=== PATIENT | male | born 1980 | race Caucasian/White ===

== ENCOUNTER 2017-08-22 23:05 | Inpatient (IN) | payer MEDICAID ==
[2017-08-22] MEDS ORDERED: Sodium Chloride 0.9% 1,000 ML IV ONE (23:19)
[2017-08-22] MEDS ORDERED: cefTRIAXone 1 GM in Sodium Chloride 0.9% 50 ML IV ONE (23:20)
--- NOTE | 2017-08-22 23:27 | ED Physician Chart ---
ED Chief Complaint/HPI - Patient Information Date Seen:: 08/22/17 Time Seen:: 23:00 Chief Complaint:: Urinary Retention History of Present Illness:: onset x one day of urinary retention; pt had I and D for Herlinda-Rectal Abscess earlier today; no trauma, H/As, neck pain, C/P, SOB, Abd. Pain, A/N/V/D/C, fever , chills, or flank pain Allergies:: Allergies Allergy/AdvReac Type Severity Reaction Status Date / Time No Known Allergies Allergy Verified 08/22/17 23:18 Vitals:: Vital Signs - 8 hr 08/22/17 23:05 Temp 98.9 F HR 75 RR 18 BP 131/74 O2 Sat % 95 Historian:: Patient, Family Member Review:: Nurse's Note Reviewed ED Review of Systems - Review of Systems General/Constitutional: No fever, No chills, No weight loss, No weakness, No diaphoresis, No edema, No loss of appetite Skin: No skin lesions, No rash, No bruising Head: No headache, No light-headedness Eyes: No loss of vision, No pain, No diplopia ENT: No earache, No nasal drainage, No sore throat, No tinnitus Neck: No neck pain, No swelling, No thyromegaly, No stiffness, No mass noted Cardio Vascular: No chest pain, No palpitations, No PND, No orthopnea, No edema Pulmonary: No SOB, No cough, No sputum, No wheezing GI: No nausea, No vomiting, No diarrhea, No pain, No melena, No hematochezia, No constipation, No hematemesis G/U: No dysuria, No frequency, No hematuria, No nacturia Musculoskeletal: No bone or joint pain, No back pain, No muscle pain Endocrine: No polyuria, No polydipsia Psychiatric: No prior psych history, No depression, No anxiety, No suicidal ideation Hematopoietic: No bruising, No lymphadenopathy Allergic/Immuno: No urticaria, No angioedema Neurological: No syncope, No focal symptoms, No weakness, No paresthesia, No headache, No seizure, No dizziness, No confusion, No vertigo ED Past Medical History - Past Medical History Obtainable: Yes Past Medical History: Other (Per-Rectal abscess) Family History: HTN Social History: Non Smoker, No Alcohol, No Drug Use, Single Surgical History: other (I and D of Per-Rectal Abscess) Psychiatricy History: None Medication: Reviewed Family Medical History - Family Member Mother Ethnicity: ED Physical Exam - Physical Examination General/Constitutional: Awake, Well-developed, well-nourished, Alert, No distress, GCS 15, Non-toxic appearing, Ambulatory Head: Atraumatic Eyes: Lids, conjuctiva normal, PERRL, EOMI Skin: Nl inspection, No rash, No skin lesions, No ecchymosis, Well hydrated, No lymphadenopathy ENMT: External ears, nose nl, TM canals nl, Nasal exam nl, Lips, teeth, gums nl , Oropharynx nl Neck: Nontender, Full ROM w/o pain, No JVD, No nuchal rigidity, No bruit, No mass, No stridor Respiratory: Nl effort/Exclusion, Clear to Auscultation, No Wheeze/Rhonchi/Rales Cardio Vascular: RRR, No murmur, gallop, rubs, NL S1 S2, Carotid/Femoral/Distal pulses equal bilaterally GI: No tenderness/rebounding/guarding, No organomegaly, No hernia, Normal BS's, Nondistended, No mass/bruits, No McBurney tenderness Other GI comments:: + Herlinda-Rectal Abscess; S/P I and D with Packing : No CVA tenderness Other comments:: + Urinary Retention Extremities: No tenderness or effusion, Full ROM, normal strength in all extremities, No edema, Normal digits & nails Neuro/Psych: Alert/oriented, DTR's symmetric, Normal sensory exam, Normal motor strength, Judgement/insight normal, Mood normal, Normal gait, No focal deficits Misc: Normal back, No paraspinal tenderness ED Labs/Radiology/EKG Results - Lab Results Comments:: K+: 3.3; Na+: 131; WBC: 15.2 - EKG Interpretations Rate & Rhythm: NSR Comments:: non-specific sr-r changes ED Septic Shock - . Is Septic Shock (SBP<90, OR Lactate>4 mmol\L) present?: No - <6hrs of presentation: Vital Signs: Vital Signs - 8 hr 08/22/17 23:05 Temp 98.9 F HR 75 RR 18 BP 131/74 O2 Sat % 95 ED Reassessment (Disposition) - Reassessment Reassessment Condition:: Improved - Diagnosis Diagnosis:: Dx: URl Abscess; Urinary Retention; Cellulitis; Sepsis; Leukocytosis; Hypokalemia; Hyponatremoa - Aftercare/Follow up Instructions Aftercare/Follow-Up Instructions:: Counseled pt regarding lab results/diagnosis & need follow up, Counseled pt & family regarding lab results/diagnosis & need follow up - Patient Disposition Discharge/Transfer:: Acute Care w/in this hosp Accepting Physician:: Dr. Meadows Time Called:: [id number] Time Responded:: 23:55 Admitted to:: Med/Surg Spoke to:: Dr. Meadows Admitting Medical Physician:: Dr. Meadows Condition at Disposition:: Stable, Improved
[2017-08-22 23:45] LABS: RED CELL DISTRIBUTION WIDTH 11.9 % (11.5-20.0)
[2017-08-22 23:54] LABS: URINE BILIRUBIN NEGATIVE (NEGATIVE); URINE BLOOD NEGATIVE (NEGATIVE); URINE GLUCOSE (UA) NEGATIVE (NEGATIVE); URINE KETONE 15 mg/dL (NEGATIVE); URINE PH 6.5 (4.6 - 8.0); URINE PROTEIN NEGATIVE (NEGATIVE); URINE UROBILINOGEN 0.2 E.U./dL (0.2 - 1.0)
[2017-08-22] MEDS ORDERED: Morphine Sulfate 2 mg/mL 1mL Syr ONE (23:54)
[2017-08-22 23:55] LABS: URINE BACTERIA NONE SEEN /hpf (NONE SEEN); URINE COLOR YELLOW; URINE EPITHELIAL CELLS NONE SEEN /lpf (FEW); URINE RBC NONE SEEN /hpf (0-5); URINE WBC NONE SEEN /hpf (0-5)
[2017-08-22 23:58] LABS: HEMATOCRIT 42.6 % (41.0-60); HEMOGLOBIN 14.4 gm/dL (12-16); MEAN CELL VOLUME 89.5 fl (80-99); MEAN CORPUSCULAR HEMOGLOBIN 30.2 pg (26.0-30.0); MEAN CORPUSCULAR HGB CONC 33.7 pg (28.0-36.0); MEAN PLATELET VOLUME 9.3 fl; PLATELET COUNT 245 Th/cmm (150-400); RED BLOOD COUNT 4.76 Mil/cmm (4.30-5.70)
[2017-08-23 00:02] LABS: WHITE BLOOD COUNT 15.2 Th/cmm (4.8-10.8)
[2017-08-23 00:04] LABS: ALB/GLOB RATIO 1.3 (1.0-1.8); ALKALINE PHOSPHATASE 58 U/L (34-104); ANION GAP 6.9 (7.0-16.0); BILIRUBIN,TOTAL 1.3 mg/dL (0.3-1.0); BUN - UREA NITROGEN 15 mg/dL (7-25); BUN/CREATININE RATIO 18.8; CALCIUM SERUM 9.1 mg/dL (8.6-10.3); CARBON DIOXIDE 27.4 mEq/L (21.0-31.0); CHLORIDE 100 mEq/L (98-107); CREATININE - SERUM 0.8 mg/dL (0.7-1.3); GLUCOSE 152 mg/dL (70-105); POTASSIUM SERUM 3.3 mEq/L (3.5-5.1); SGOT 34 U/L (13-39); SGPT/ALT 57 U/L (7-52); SODIUM SERUM 131 mEq/L (136-145)
[2017-08-23 00:09] LABS: TROP I < 0.01 ng/mL (0.01-0.05)
[2017-08-23 00:22] LABS: INR 1.06 (0.5-1.4)
[2017-08-23] MEDS ORDERED: Potassium Chloride 20 mEq ER Tab PO ONE ×2 (00:37→01:04)
[2017-08-23] MEDS ORDERED: Morphine Sulfate 2 mg/mL 1mL Syr ONE ×2 (01:38→06:08)
[2017-08-23] MEDS: Morphine Sulfate 2 mg/mL 1mL Syr IVP PRN ×2 (01:40→06:12)
[2017-08-23 02:13] LABS: BAND NEUTROPHILE 8 % (0-10); BASOPHIL 0 % (0-3); EOSINOPHIL 0 % (0-5); NEUTROPHILS 79 % (40-80); PLATELET ESTIMATE ADEQUATE (NORMAL); PLATELET MORPHOLOGY NORMAL (NORMAL); TOTAL CELLS COUNTED 100
[2017-08-23] MEDS ORDERED: Vancomycin HCl 1.5 GM in Sodium Chloride 0.9% 500 ML IV ONE (10:00)
[2017-08-23] MEDS ORDERED: Probiotic Screen MC PRN (10:07)
--- NOTE | 2017-08-23 13:17 | General Progress Note ---
Subjective - Review of Systems Service Date: 08/23/17 Events since last encounter: developed urinary retention post I and D rectal abscess history of rectal fistula, treated at [facility] suggest patient go back to [place] for follow up treatment Objective - Results Result Diagrams: 08/22/17 23:29 08/22/17 23: Recent Labs: Laboratory Last Values WBC 15.2 Th/cmm (4.8-10.8) H 08/22/17 23: RBC 4.76 Mil/cmm (4.30-5.70) 08/22/17 23: Hgb 14.4 gm/dL (12-16) 08/22/17: Hct 42.6 % (41.0-60) 08/22/17: MCV 89.5 fl (80-99) 08/22/17 23: MCH 30.2 pg (26.0-30.0) H 08/22/17: MCHC Differential 33.7 pg (28.0-36.0) 08/22/17: RDW 11.9 % (11.5-20.0) 08/22/17: Plt Count 245 Th/cmm (150-400) 08/22/17: MPV 9.3 fl 08/22/17: Band Neutrophils % 8 % (0-10) 08/22/17: Neutrophils (Manual) 79 % (40-80) 08/22/17: Lymphocytes 11 % (20-50) L 08/22/17: Monocytes 2 % (2-10) 08/22/17: Eosinophils 0 % (0-5) 08/22/17 23: Basophils 0 % (0-3) 08/22/17: Platelet Estimate ADEQUATE (NORMAL) 08/22/17: Platelet Morphology NORMAL (NORMAL) 08/22/17: RBC Morph Micro Appear NORMAL (NORMAL) 08/22/17 23: PT 11.0 SECONDS (9.5-11.5) 08/22/17 23: INR 1.06 (0.5-1.4) 08/22/17 23: PTT (Actin FS) 24.1 SECONDS (26.0-38.0) L 11/15/17 23:29 Sodium 131 mEq/L (136-145) L 08/22/17 23:29 Potassium 3.3 mEq/L (3.5-5.1) L 08/22/17 23:29 Chloride 100 mEq/L (98-107) 08/22/17 23:29 Carbon Dioxide 27.4 mEq/L (21.0-31.0) 08/22/17 23:29 Anion Gap 6.9 (7.0-16.0) L 08/22/17 23:29 BUN 15 mg/dL (7-25) 08/22/17 23:29 Creatinine 0.8 mg/dL (0.7-1.3) 08/22/17 23:29 Est GFR ( Amer) > 60.0 ml/min (>90) 08/22/17 23:29 Est GFR (Non-Af Amer) > 60.0 ml/min 08/22/17 23: BUN/Creatinine Ratio 18.8 08/22/17 23: Glucose 152 mg/dL (70-105) H 08/22/17 23:29 Whole Bld Lactic Acid 1.37 mmol/L (0.60-1.99) 08/22/17 23: Calcium 9.1 mg/dL (8.6-10.3) 08/22/17 23:29 Total Bilirubin 1.3 mg/dL (0.3-1.0) H 08/22/17 23:29 AST 34 U/L (13-39) 08/22/17 23:29 ALT 57 U/L (7-52) H 08/22/17 23:29 Alkaline Phosphatase 58 U/L (34-104) 08/22/17 23:29 Creatine Kinase 136 U/L (30-223) 08/22/17 23:29 Troponin I < 0.01 ng/mL (0.01-0.05) L 08/22/17 23:29 Total Protein 7.1 gm/dL (6.0-8.3) 08/22/17 23:29 Albumin 4.0 gm/dL (4.2-5.5) L 08/22/17 23:29 Globulin 3.1 gm/dL 08/22/17 23:29 Albumin/Globulin Ratio 1.3 (1.0-1.8) 08/22/17 23:29 Urine Source [place] 08/22/17 23:35 Urine Color YELLOW 08/22/17 23:35 Urine Clarity CLEAR (CLEAR) 08/22/17 23:35 Urine pH 6.5 (4.6 - 8.0) 08/22/17 23:35 Ur Specific [place] 1.020 (1.005-1.030) 08/22/17 23:35 Urine Protein NEGATIVE mg/dL (NEGATIVE) 08/22/17 23:35 Urine Glucose (UA) NEGATIVE mg/dL (NEGATIVE) 08/22/17 23:35 Urine Ketones 15 mg/dL (NEGATIVE) H 08/22/17 23:35 Urine Blood NEGATIVE (NEGATIVE) 08/22/17 23:35 Urine Nitrate NEGATIVE (NEGATIVE) 08/22/17 23:35 Urine Bilirubin NEGATIVE (NEGATIVE) 08/22/17 23:35 Urine Urobilinogen 0.2 E.U./dL (0.2 - 1.0) 08/22/17 23:35 Ur Leukocyte Esterase NEGATIVE (NEGATIVE) 08/22/17 23:35 Urine RBC NONE SEEN /hpf (0-5) 08/22/17 23:35 Urine WBC NONE SEEN /hpf (0-5) 08/22/17 23:35 Ur Epithelial Cells NONE SEEN /lpf (FEW) 08/22/17 23:35 Urine Bacteria NONE SEEN /hpf (NONE SEEN) 08/22/17 23:35 - Physical Exam Vitals and I&O: Vital Signs Temp 98.7 F 08/23/17 08:00 Pulse 67 08/23/17 08:00 Resp 18 08/23/17 08:00 BP 120/66 08/23/17 08:00 Pulse Ox 96 08/23/17 08:00 Intake & Output 08/22/17 08/23/17 08/23/17 18:59 06:59 18:59 Intake Total 700 Balance 700 Intake: Intake, IV Amount 700 Piperacillin Sodium/ 100 Tazobact 4.5 gm In Sodium Chloride 0.9% 100 ml @ 100 mls/hr IV Q8HR [facility] Rx #:[id number] Vancomycin HCl 0.75 gm In 250 Sodium Chloride 0.9% 250 ml @ 165 mls/hr IV Q8H [facility] Rx#:[id number] Active Medications: Current Medications Piperacillin Sod/Tazobactam (Sod 4.5 gm/ Sodium Chloride) 100 mls @ 100 mls/hr IV Q8HR [facility] Stop: 10/22/17 04:59 Last Infusion: 08/23/17 06:11 Dose: Infused Vancomycin HCl 1 gm/ Sodium (Chloride) 250 mls @ 165 mls/hr IV Q8H [facility] Stop: 10/22/17 17:59 Lactobacillus Rhamnosus (Culturelle) 1 each PO DAILY [facility] Stop: 10/23/17 08:59 Miscellaneous (Vancomycin Iv Per Pharmacy) 1 ea PRN PRN PRN Reason: PROTOCOL Stop: 10/22/17 00:56 Miscellaneous (Probiotic Screen) 1 ea PRN PRN PRN Reason: PROTOCOL Stop: 10/22/17 10:06 Morphine Sulfate (Morphine) 2 mg IVP Q4H PRN PRN Reason: Pain (Moderate) Stop: 10/22/17 01:14 Last Admin: 08/23/17 06:12 Dose: 2 mg Ondansetron HCl (Zofran) 4 mg IV Q6H PRN PRN Reason: Nausea / Vomiting Stop: 10/22/17 00:59
[2017-08-23] MEDS ORDERED: Menthol/Zinc Oxide Oint 113gm Tube TP PRN (17:31)
[2017-08-23] MEDS: Menthol/Zinc Oxide Oint 113gm Tube TP SCH (21:30)
--- NOTE | 2017-08-24 01:29 | Consultation ---
Consult Note - Consult Note Service Date: 08/23/17 Referring Physician: Blane Meadows Consult Note: PHYSICIAN Consultation Note: Date of Admission: 08/23/17 Purpose of Consultation: rectal abscess. Chief Complaint: Patient L[facility] CURRIE was admitted to [facility] Medical[facility] Unit I with RECTAL ABSCESS. History of Present Illness: patient is 37 year male had developed pain ini rectal area, he had I and D performed at [facility]. he was admitted for urinary retention of one day. He was afebrile , his WBC Count was 15,000. Newsome was placed in, which was removed. he is able to urinate himself. Past Medical History: None Allergies Allergy/AdvReac Type Severity Reaction Status Date / Time No Known Allergies Allergy Verified 08/22/17 23:18 Vital Signs Temp 98.9 F 08/23/17 20:00 Pulse 67 08/23/17 20:00 Resp 18 08/23/17 20:00 BP 115/69 08/23/17 20:00 Pulse Ox 96 08/23/17 20:00 Intake & Output 08/23/17 08/23/17 08/24/17 06:59 18:59 06:59 Intake Total 700 100 100 Output Total 0 Balance 700 -1950 100 Weight (lbs) 81.647 kg Intake: Intake, IV Amount 700 100 100 Piperacillin Sodium/ 100 100 100 Tazobact 4.5 gm In Sodium Chloride 0.9% 100 ml @ 100 mls/hr IV Q8HR [facility] Rx #:[id number] Vancomycin HCl 0.75 gm In 250 Sodium Chloride 0.9% 250 ml @ 165 mls/hr IV Q8H [facility] Rx#:[id number] Output: Urine 2049 Other: # Voids 1 Home Medication Medication Instructions Recorded Type traMADol HCl [Ultram*] 50 mg PO Q6H PRN 08/22/17 History Current Medications Generic Name Dose Route Start Last Admin Trade Name Freq PRN Reason Stop Dose Admin Calamine/Phenol 1 appl 08/23/17 21:00 08/23/17 21:30 Calmoseptine TP 10/22/17 20:59 Not Given QID SHA Calamine/Phenol 1 appl 08/23/17 17:31 Calmoseptine TP 10/22/17 17:30 QID PRN Skin Irritation Piperacillin Sod/Tazobactam 100 mls @ 100 mls/hr 08/23/17 05:00 08/23/17 21: 05 Sod 4.5 gm/ Sodium Chloride IV 10/22/17 04:59 Infused Q8HR [facility] Infusion Vancomycin HCl 1 gm/ Sodium 250 mls @ 165 mls/hr 08/23/17 18:00 08/23/17 17: 15 Chloride IV 10/22/17 17:59 165 mls/hr Q8H [facility] Administration Lactobacillus Rhamnosus 1 each 08/24/17 09:00 Culturelle PO 10/23/17 08:59 DAILY [facility] Miscellaneous 1 ea 08/23/17 00:57 Vancomycin Iv Per Pharmacy 10/22/17 00:56 PRN PRN PROTOCOL Miscellaneous 1 ea 08/23/17 10:07 Probiotic Screen 10/22/17 10:06 PRN PRN PROTOCOL Morphine Sulfate 2 mg 08/23/17 01:01 08/23/17 06:12 Morphine IVP 10/22/17 01:14 2 mg Q4H PRN Administration Pain (Moderate) Ondansetron HCl 4 mg 08/23/17 01:00 Zofran IV 10/22/17 00:59 Q6H PRN Nausea / Vomiting Review of Systems: A 12 point ROS was reviewed with the pertinent positive and negatives noted in the HPI. 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 Family Medical History unknown Physical Exam: General: Comfortable. WN WD. HEENT: Head normocephalic atraumatic, Oral cavity moist, pink tongue. Eye no pallor no icterus. Neck: supple, no JVD, no use of acc enck muscles. Cardio: S1 And S2 WNL. no Murmur no gallop Respiratory: CTAP Abdominal: Soft NT ND BS present. Genital/Urinary: deferred Extremities: NCCE Neurological: AAOx 3. no focal neurodeficit. Assessment: 1. rectal abscess. 2. Urinary retension. Resolved. Plan: If leukocytosis improved, may dc patient on levaquin po and flagyl po for 10 days. May F/u with urology consult outpatient basis if needed. Meanwhile continue vanco IV and Zosyn. Signed, Abe Dickson M.D. [id number]
--- NOTE | 2017-08-24 02:42 | History & Physical ---
ADMIT DATE: 08/23/2017 CHIEF COMPLAINT: Unable to urinate. HISTORY OF PRESENT ILLNESS: This is a 37-year-old male who underwent an anal fistula surgery at ____ [facility] in [place]. Postoperatively, the patient was discharged home. The patient says that he was unable to void and having lower abdominal pain, so the patient came into the Emergency Room. The patient had a Newsome catheterization done, noted to have large volume of urine came out. The patient noticed to have white count of 15.2. So, the patient subsequently admitted for further treatment. The patient denies any fever. No chills, no dysuria, no hematuria, no nausea, no vomiting, no abdominal pain, no headache or any other complaints. PAST MEDICAL HISTORY: Anal fistula. PAST SURGICAL HISTORY: The patient underwent anal fistula surgery. ALLERGIES: NO KNOWN DRUG ALLERGY. REVIEW OF SYSTEMS: As per HPI, 12-point system appears negative. PHYSICAL EXAMINATION: VITAL SIGNS: Temperature 98.9, pulse 67, respirations 18, blood pressure 115/69, oxygen 96% on room air. GENERAL APPEARANCE: The patient does not seem in acute distress, lying comfortably. HEENT: Unremarkable. HEART: S1, S2 normal. LUNGS: Clear to auscultation bilaterally. ABDOMEN: Soft, nontender. No rebound or guarding. NEUROLOGIC: The patient is alert, awake, and follows commands. Cranial nerves II through XII are grossly intact. EXTREMITIES: Both lower extremity DTR +2. Sensation normal. AVAILABLE LABORATORY DATA: Has been reviewed. ASSESSMENT: 1. Acute urinary retention. 2. Anal fistula, status post surgery. 3. Leukocytosis. PLAN: The patient was admitted to [facility] floor. The patient was given Newsome catheterization. The patient had a good urine output. Will discontinue Newsome and see if the patient is able to void or not. Will continue IV antibiotics. The patient was evaluated by General Surgery, recommended to continue current treatment and follow with Surgery at [facility] Hospital. ID also consulted. Discussed with her conditions and plan of care. JOB# [id number]
[2017-08-24] MEDS: Morphine Sulfate 2 mg/mL 1mL Syr IVP PRN ×2 (05:10→20:25)
[2017-08-24 07:12] LABS: % BASOPHILS 3.7 % (0.0-2.0); % EOSINOPHILS 2.8 % (0.0-5.0); % LYMPHOCYTES 14.2 % (20.0-50.0); % MONOCYTES 10.8 % (2.0-10.0); % NEUTROPHILS 68.5 % (40.0-80.0); HEMATOCRIT 44.6 % (41.0-60); HEMOGLOBIN 14.6 gm/dL (12-16); MEAN CELL VOLUME 90.7 fl (80-99); MEAN CORPUSCULAR HEMOGLOBIN 29.6 pg (26.0-30.0); MEAN CORPUSCULAR HGB CONC 32.7 pg (28.0-36.0); MEAN PLATELET VOLUME 8.8 fl; NEUTROPHILE ABSOLUTE 5.8 Th/cmm (1.8-8.0); RED BLOOD COUNT 4.92 Mil/cmm (4.30-5.70); RED CELL DISTRIBUTION WIDTH 11.8 % (11.5-20.0)
[2017-08-24 07:21] LABS: PLATELET COUNT 192 Th/cmm (150-400); WHITE BLOOD COUNT 8.4 Th/cmm (4.8-10.8)
[2017-08-24 07:22] LABS: ANION GAP 8.3 (7.0-16.0); BUN - UREA NITROGEN 10 mg/dL (7-25); BUN/CREATININE RATIO 9.1; CALCIUM SERUM 9.2 mg/dL (8.6-10.3); CARBON DIOXIDE 26.2 mEq/L (21.0-31.0); CHLORIDE 104 mEq/L (98-107); CREATININE - SERUM 1.1 mg/dL (0.7-1.3); GLUCOSE 96 mg/dL (70-105); POTASSIUM SERUM 3.5 mEq/L (3.5-5.1); SODIUM SERUM 135 mEq/L (136-145)
[2017-08-24] MEDS: Menthol/Zinc Oxide Oint 113gm Tube TP SCH ×4 (08:56→20:11)
[2017-08-24] MEDS ORDERED: Lactobacillus Rhamnosus 10 Billion CFU Capsule PO SCH (09:00)
--- NOTE | 2017-08-24 14:22 | Consultation ---
DATE OF CONSULTATION: 08/23/2017 SURGICAL CONSULTATION REFERRING PHYSICIAN: Dr. Meadows. REASON FOR CONSULTATION: Anorectal fistula. HISTORY OF PRESENT ILLNESS: This is a 37-year-old male admitted because of inability to urinate. The patient had a Newsome catheter inserted. PAST MEDICAL HISTORY: Involves what the patient claims was an anorectal fistula treated at [facility] about a month ago. Exact treatment is not known. Additionally, he had an abscess that was drained. The other significant history is that he denies diabetes or hypertension. Apparently, this is the first episode of urinary retention. LABORATORY STUDIES: Showed WBC at 15,200 with 11% lymphocytes. PT and PTT are normal. Chemistry shows bilirubin of 1.3 with ALT of 57, raising the question of alcohol intake and early cirrhosis of the liver. PHYSICAL EXAMINATION: Now does not show any recent drainage of any perirectal abscess as there is no wound there. RECOMMENDATIONS: Suggest the patient go back to his surgeon of record, who did the fistula treatment at [facility]. JOB# [id number]
--- NOTE | 2017-08-24 14:47 | Diagnostic Imaging Report ---
Ultrasound urinary bladder HISTORY: Difficulty urination The exam demonstrates a normal contour of the urinary bladder. Normal wall thickness. No intraluminal abnormalities are seen. A 5 mm echogenic density is noted immediately adjacent to the anterior wall of the urinary bladder. This may represent a small calcification of questionable significance. If necessary, a CT scan provide additional assessment. Prevoid urine volume equals 251.7 mL. Post void volume equals 37.3 mL. IMPRESSION: 1. 5 mm echogenic density adjacent to the anterior wall of the urinary bladder that may are present a small calcification of questionable significance. If needed, a CT scan would provide additional assessment. 2. Post void residual equals 37.3 mL.
--- NOTE | 2017-08-24 22:06 | General Progress Note ---
Subjective - Review of Systems Service Date: 08/24/17 Subjective: Patient feels better able to void well after dc'ing shankar. Denied any other complaints. Irish speaking hospital staff was used for communication Objective - Results Result Diagrams: 08/24/17 06:50 08/24/17 06:50 Recent Labs: Laboratory Last Values WBC 8.4 Th/cmm (4.8-10.8) D 08/24/17 06:50 RBC 4.92 Mil/cmm (4.30-5.70) 08/24/17 06:50 Hgb 14.6 gm/dL (12-16) 08/24/17 06:50 Hct 44.6 % (41.0-60) 08/24/17 06:50 MCV 90.7 fl (80-99) 08/24/17 06:50 MCH 29.6 pg (26.0-30.0) 08/24/17 06:50 MCHC Differential 32.7 pg (28.0-36.0) 08/24/17 06:50 RDW 11.8 % (11.5-20.0) 08/24/17 06:50 Plt Count 192 Th/cmm (150-400) D 08/24/17 06:50 MPV 8.8 fl 08/24/17 06:50 Neutrophils % 68.5 % (40.0-80.0) 08/24/17 06:50 Band Neutrophils % 8 % (0-10) 08/22/17 23:29 Lymphocytes % 14.2 % (20.0-50.0) L 08/24/17 06:50 Monocytes % 10.8 % (2.0-10.0) H 08/24/17 06:50 Eosinophils % 2.8 % (0.0-5.0) 08/24/17 06:50 Basophils % 3.7 % (0.0-2.0) H 08/24/17 06:50 Neutrophils (Manual) 79 % (40-80) 08/22/17 23:29 Lymphocytes 11 % (20-50) L 08/22/17 23:29 Monocytes 2 % (2-10) 08/22/17 23:29 Eosinophils 0 % (0-5) 08/22/17 23:29 Basophils 0 % (0-3) 08/22/17 23:29 Platelet Estimate ADEQUATE (NORMAL) 08/22/17 23:29 Platelet Morphology NORMAL (NORMAL) 08/22/17 23: RBC Morph Micro Appear NORMAL (NORMAL) 08/22/17 23:29 PT 11.0 SECONDS (9.5-11.5) 08/22/17 23:29 INR 1.06 (0.5-1.4) 08/22/17 23: PTT (Actin FS) 24.1 SECONDS (26.0-38.0) L 08/22/17 23:29 Sodium 135 mEq/L (136-145) L 08/24/17 06:50 Potassium 3.5 mEq/L (3.5-5.1) 08/24/17 06:50 Chloride 104 mEq/L (98-107) 08/24/17 06:50 Carbon Dioxide 26.2 mEq/L (21.0-31.0) 08/24/17 06:50 Anion Gap 8.3 (7.0-16.0) 08/24/17 06:50 BUN 10 mg/dL (7-25) 08/24/17 06:50 Creatinine 1.1 mg/dL (0.7-1.3) 08/24/17 06:50 Est GFR ( Amer) > 60.0 ml/min (>90) 08/24/17 06:50 Est GFR (Non-Af Amer) > 60.0 ml/min 08/24/17 06:50 BUN/Creatinine Ratio 9.1 08/24/17 06:50 Glucose 96 mg/dL (70-105) 08/24/17 06:50 Whole Bld Lactic Acid 1.37 mmol/L (0.60-1.99) 08/22/17 23: Calcium 9.2 mg/dL (8.6-10.3) 08/24/17 06:50 Total Bilirubin 1.3 mg/dL (0.3-1.0) H 08/22/17 23:29 AST 34 U/L (13-39) 08/22/17 23:29 ALT 57 U/L (7-52) H 08/22/17 23:29 Alkaline Phosphatase 58 U/L (34-104) 08/22/17 23: Creatine Kinase 136 U/L (30-223) 08/22/17 23:29 Troponin I < 0.01 ng/mL (0.01-0.05) L 08/22/17 23:29 Total Protein 7.1 gm/dL (6.0-8.3) 08/22/17 23:29 Albumin 4.0 gm/dL (4.2-5.5) L 08/22/17 23:29 Globulin 3.1 gm/dL 08/22/17 23:29 Albumin/Globulin Ratio 1.3 (1.0-1.8) 08/22/17 23:29 Urine Source [place] 08/22/17 23:35 Urine Color YELLOW 08/22/17 23:35 Urine Clarity CLEAR (CLEAR) 08/22/17 23:35 Urine pH 6.5 (4.6 - 8.0) 08/22/17 23:35 Ur Specific [place] 1.020 (1.005-1.030) 08/22/17 23:35 Urine Protein NEGATIVE mg/dL (NEGATIVE) 08/22/17 23:35 Urine Glucose (UA) NEGATIVE mg/dL (NEGATIVE) 08/22/17 23:35 Urine Ketones 15 mg/dL (NEGATIVE) H 08/22/17 23:35 Urine Blood NEGATIVE (NEGATIVE) 08/22/17 23:35 Urine Nitrate NEGATIVE (NEGATIVE) 08/22/17 23:35 Urine Bilirubin NEGATIVE (NEGATIVE) 08/22/17 23:35 Urine Urobilinogen 0.2 E.U./dL (0.2 - 1.0) 08/22/17 23:35 Ur Leukocyte Esterase NEGATIVE (NEGATIVE) 08/22/17 23:35 Urine RBC NONE SEEN /hpf (0-5) 08/22/17 23:35 Urine WBC NONE SEEN /hpf (0-5) 08/22/17 23:35 Ur Epithelial Cells NONE SEEN /lpf (FEW) 08/22/17 23:35 Urine Bacteria NONE SEEN /hpf (NONE SEEN) 08/22/17 23:35 Vancomycin Trough 19.7 ug/mL (10-20) 08/24/17 09:02 - Physical Exam Vitals and I&O: Vital Signs Temp 97.8 F 08/24/17 16:00 Pulse 70 08/24/17 16:00 Resp 17 08/24/17 16:00 BP 139/80 08/24/17 16:00 Pulse Ox 96 08/24/17 16:00 Intake & Output 08/24/17 08/24/17 08/25/17 06:59 18:59 06:59 Intake Total 650 300 20 Balance 650 300 20 Weight (lbs) 79.923 kg 79.923 kg Intake: Intake, IV Amount 450 300 Piperacillin Sodium/ 200 Tazobact 4.5 gm In Sodium Chloride 0.9% 100 ml @ 100 mls/hr IV Q8HR [facility] Rx #:[id number] Piperacillin Sodium/ 50 Tazobact 4.5 gm In Sodium Chloride 0.9% 50 ml @ 50 mls/hr IV Q8HR [facility] Rx#: [id number] Vancomycin HCl 1 gm In 250 250 Sodium Chloride 0.9% 250 ml @ 165 mls/hr IV Q8H [facility] Rx#:[id number] Oral 200 20 Other: # Voids 2 1 # Bowel Movements 1 1 Active Medications: Current Medications Calamine/Phenol (Calmoseptine) 1 appl TP QID [facility] Stop: 10/22/17 20:59 Last Admin: 08/24/17 20:11 Dose: 1 appl Calamine/Phenol (Calmoseptine) 1 appl TP QID PRN PRN Reason: Skin Irritation Stop: 10/22/17 17:30 Vancomycin HCl 1 gm/ Sodium (Chloride) 250 mls @ 165 mls/hr IV Q8H [facility] Stop: 10/22/17 17:59 Last Admin: 08/24/17 17:25 Dose: 165 mls/hr Piperacillin Sod/Tazobactam (Sod 4.5 gm/ Sodium Chloride) 50 mls @ 50 mls/hr IV Q8HR [facility] Stop: 10/23/17 12:59 Last Admin: 08/24/17 20:14 Dose: 50 mls/hr Lactobacillus Rhamnosus (Culturelle) 1 each PO DAILY [facility] Stop: 10/23/17 08:59 Last Admin: 08/24/17 08:55 Dose: 1 each Miscellaneous (Vancomycin Iv Per Pharmacy) 1 ea [facility] PRN PRN PRN Reason: PROTOCOL Stop: 10/22/17 00:56 Miscellaneous (Probiotic Screen) 1 ea MC PRN PRN PRN Reason: PROTOCOL Stop: 10/22/17 10:06 Morphine Sulfate (Morphine) 2 mg IVP Q4H PRN PRN Reason: Pain (Moderate) Stop: 10/22/17 01:14 Last Admin: 08/24/17 20:25 Dose: 2 mg Ondansetron HCl (Zofran) 4 mg IV Q6H PRN PRN Reason: Nausea / Vomiting Stop: 10/22/17 00:59 Cardiovascular: Regular rate Lungs: Clear to auscultation Assessment/Plan - Assessment Assessment: Anal fissure s/p surgery Acute urinary retention resolved - Plan Plan: Bladder US showed PVR 37 ml ID cleared patient for home discharge with oral antibiotics Surgery ( DR MOORE) requested patient to be followed with his own surgeon DC plan discussed with patient and family DC home today Rina and Leon was called in to pt's pharmacy Nutritional Asmnt/Malnutr-PDOC - Dietary Evaluation Malnutrition Findings (Please click <Entered> for more info): Nutritional Asmnt/Malnutrition Start: 08/24/17 15: 42 Text: Status: Complete Freq: Document 08/24/17 15:42 LCHENG (Rec: 08/24/17 15:53 LCHENG [email or web address]) Nutritional Asmnt/Malnutrition Patient General Information Nutritional Screening High Risk Consult Diagnosis rectal abscess Pertinent Medical Hx/Surgical Hx HTN, I&D of per rectal abscess Subjective Information pt seen lying in bed, alert and talkative. Per note PO intake 25-50% yesterday 08/23. Pt reported appetite ok, consumed 90% of breakfast this morning, saved banana for later, no question or concern about current diet. no fat/ muscle wasting noted. Current Diet Order/ Nutrition Support regular Pertinent Medications culturelle, vancomycin, peperacillin Pertinent Labs 08/24 Na 135L, Glu 96 08/22 Na 131L, K 3.3L, Glu 152 (no hx of DM), ALT 57H, Alb 4 .0L Nutritional Hx/Data Height 1.65 m Height (Calculated Centimeters) 165.1 Current Weight (lbs) 79.923 kg Weight (Calculated Kilograms) 79.9 Weight (Calculated Grams) 99456.0 Usual body Weight (lbs) 180 % Usual Body Weight 98 [place] Body Weight 136 % [place] Body Weight 130 Body Mass Index (BMI) 29.3 Recent Weight Change No Weight Status Overweight GI Symptoms GI Symptoms None Last BM 08/24 Difficult in: None Food Allergies No Usual diet at home pt does not follow any diet restriction before adm Skin Integrity/Comment: incision on rectal Estimated Nutritional Goals BEE in Kcals: Using Current wt Calories/Kcals/Kg 25-27 Kcals Calculated [id number] Protein: Using Current wt Protein g/k Protein Calculated 80 Fluid: ml [id number] Nutritional Problem 1. Problem Problem increased nutrition needs ( protein) Etiology increased metabolic demand for wound healing Signs/Symptoms: rectal abscess and s/p I &D Malnutrition Alert Protein-Calorie Malnutrition N/A Is there a minimum of two criteria No selected? Query Text:Check all the applicable criteria. A minimum of two criteria are recommended for diagnosis of either severe or non-severe malnutrition. Intervention/Recommendation Comments 1. continue with current diet order. current PO intake meets nutritional needs. 2. Provided education about protien itnake and wound healing, encouraged to take protein-rich food. Pt understood and verbalized. 3. monitor PO intake, skin integrity, wt weekly, labs 4. F/U as moderate risk in 3-5 days, 08/27-08/29 Expected Outcomes/Goals Expected Outcomes/Goals 1. PO intake to meet at least 75% of nutritonal needs 2. wt stability, wound to improve, labs to approach WNL
== END 2017-08-24 23:10 | disposition home or self-care (01) | DRG 426 ==
LOC: ER 23:05 → MSI 08-23 01:00
PROVIDERS: ADMIT Family Medicine; ATTEND Family Medicine
DX: E87.1 Hypo-osmolality and hyponatremia (principal); K61.1 Rectal abscess; R33.9 Retention of urine, unspecified; E87.6 Hypokalemia; Z82.49 Family history of ischemic heart disease and other diseases of the circulatory system
CPT/HCPCS: 36415-UA; 76857-TC; 80048-TC; 80053-TC; 80202-TC; 81001-TC; 82550-TC; 83605; 84484-TC; 85007-TC; 85025-TC; 85027-TC; 85610-TC; 85730-TC; 93005; 96375; J0696; J2270; J2543; J3370; J7030; J7040; Z7610